=== PATIENT | female | born 1975 | race Two or more races ===

== ENCOUNTER 2021-10-02 15:56 | Inpatient (IN) | payer MEDICAID, SELFPAY ==
[~2021-10-02] VITALS: Ht 167.6 cm; Wt 98.4 kg
[2021-10-02 15:58] VITALS: BP 139/117
--- NOTE | 2021-10-02 16:12 | NUR ---
PT AMBULATED TO ER BED 4 WITH A STEADY GAIT.
--- NOTE | 2021-10-02 16:20 | NUR ---
45 Y/O FEMALE C/O ABDOMINAL PAIN 08/15 DESCRIBES BURNING RADIATES TO RLQ X1WEEK. PT STATES +N/V 3TIMES TODAY. PT STATES URINARY FREQUENCY, DIZZINESS, SUBJECTIVE FEVER, AND CHILLS X 1 WEEK. ABDOMEN IS SOFT, ROUND, NON-TENDER TO PALPATION, BOWEL SOUNDS ACTIVE X4, LAST BM 09/30/21. PMH: RIGHT CLAVICLE FRACTURE & SURGERY, ASTHMA NKA
[2021-10-02] MEDS ORDERED: ONDANSETRON 4 MG/2 ML VIAL ONE (16:22)
[2021-10-02] MEDS ORDERED: NACL 0.9% 1,000 ML IV ONE ×2 (16:25→17:30)
[2021-10-02] MEDS ORDERED: ONDANSETRON 4 MG/2 ML VIAL IVP ONE (16:25)
[2021-10-02] MEDS ORDERED: KETOROLAC 30 MG/ML VIAL IVP ONE (16:30)
--- NOTE | 2021-10-02 16:35 | NUR ---
PT CHANGED MIND FOR ZOFRAN AT THIS TIME. MED WAS WASTED IN [facility] WITH SYDNI RAI.
--- NOTE | 2021-10-02 16:39 | NUR ---
PT TAKEN TO CT AT THIS TIME.
[2021-10-02 16:41] LABS: BASOPHILS % (AUTO) 0.2 % (0.0-2.0); EOSINOPHILS % (AUTO) 0.1 % (0.0-4.0); HEMATOCRIT 35.2 % (36-48); HEMOGLOBIN 11.7 g/dL (12.0-16.0); LYMPHOCYTES # (AUTO) 0.5 K/uL (2.5-16.5); LYMPHOCYTES % (AUTO) 3.8 % (20.5-51.1); MEAN CORPUSCULAR HEMOGLOBIN 28 pg (27-31); MEAN CORPUSCULAR HGB CONC 33 g/dL (33-37); MEAN CORPUSCULAR VOLUME 84.4 fL (80-94); MONOCYTES # (AUTO) 0.3 K/uL (0.8-1.0); NEUTROPHILS # (AUTO) 11.9 K/uL (1.8-7.7); NEUTROPHILS % (AUTO) 93.9 % (42.2-75.2); PLATELET COUNT (AUTO) 302 K/uL (140-450); RED BLOOD CELL COUNT(AUTO) 4.17 MIL/uL (4.20-5.40); RED CELL DISTRIBUTION WIDTH 14.3 % (11.6-13.7); WHITE BLOOD COUNT (AUTO) 12.7 K/uL (4.8-10.8)
--- NOTE | 2021-10-02 16:51 | NUR ---
PT TAKEN TO ER BED 4 VIA CATHYRSULEMAN.
[2021-10-02 16:56] LABS: APPEARANCE,URINE CLEAR (CLEAR); BILIRUBIN,URINE NEGATIVE (NEGATIVE); BLOOD, URINE 1+ (NEGATIVE); COLOR,URINE YELLOW (YELLOW); LEUKOCYTE ESTERASE ,URINE 3+ (NEGATIVE); NITRITE, URINE POSITIVE (NEGATIVE); UGLUCOSE NEGATIVE (NEGATIVE)
[2021-10-02 17:13] LABS: WBC,URINE 16-25 (MOD) /HPF (0-5)
--- NOTE | 2021-10-02 17:22 | NUR ---
ARGENIS WAS SWABBED AND SENT TO LAB AT THIS TIME
[2021-10-02] MEDS ORDERED: MORPHINE SULFATE 2 MG/ML SYR IVP PRN (17:30)
[2021-10-02] MEDS ORDERED: HYDROcodone/APAP 5/325 MG 1 TAB TAB PO PRN (17:30)
--- NOTE | 2021-10-02 17:36 | NUR ---
CRISTIAN PHONE VERBAL ORDERS FOR ADMIT: TELEMETRY ADMIT FOR OBSTRUCTIVE INFECTED KIDNEY STONE BLOOD AND URINE CULTURES NS 0.9% RATE: 150ML/HR 1000ML IV FLOMAX 0.4MG PO START NOW THEN Q DAILY MORPHINE 2MG IVP Q 4HR FOR SEVERE PAIN NORCO 5/325MG PO Q 6HR FOR MODERATE PAIN REGULAR DIET CONSULT: UROLOGY REUBEN HINOJOSA MD
[2021-10-02 17:44] LABS: ALBUMIN 3.1 g/dL (3.4-5.0); ANION GAP 13.6 (8-16); CARBON DIOXIDE 26.1 mmol/L (21-32); CREATININE 0.7 mg/dL (0.6-1.3); POTASSIUM 3.7 mmol/L (3.5-5.1); TOTAL BILIRUBIN 0.5 mg/dL (0.0-1.0)
[2021-10-02] MEDS ORDERED: cefTRIAXone 1,000 MG VIAL ONE (17:50)
[2021-10-02] MEDS ORDERED: LEVE250T7 PO (18:15)
--- NOTE | 2021-10-02 18:17 | NUR ---
Patient will be admitted to care of CRISTIAN MICHEL. Admited to TELEMETRY. Will go to room 111A. Belongings list completed. REPORT WILL BE DONE AT SHIFT CHANGE WHEN NURSE BECOMES AVAILABLE.
[2021-10-02] MEDS: TAMSULOSIN 0.4 MG CAP PO SCH (19:07)
--- NOTE | 2021-10-02 19:10 | NUR ---
Pt report given to LAZARUS. Transfer of care at this time.
--- NOTE | 2021-10-02 20:18 | NUR ---
Patient will be admitted to care of DR. FOSTER. Admited to TELE . Will go to [facility] 111A. Belongings list completed. Report to
[2021-10-02 20:45] VITALS: BP 119/61
--- NOTE | 2021-10-02 20:58 | NUR ---
The patient's care was reviewed and supervised by AMISH REA RN.
[2021-10-03] VITALS: BP 132/67
[2021-10-03 04:00] VITALS: BP 108/60
--- NOTE | 2021-10-03 07:41 | NUR ---
Received pt from ED via jameel artis. A/O x 4. Ambulatory. Was on IV fluids NS at 150 ml/hr x 1. We shall be doing pain management. She did request for an abdominal binder. It was provided. She has a skin condition Hidradenitis Suppurativa.. Photos have been taken. Wound consult has been requested. Care has been endorsed to AM FREDI Saunders.
--- NOTE | 2021-10-03 07:45 | NUR ---
RECEIVED REPORT FROM MEAT WRAPPER RN FOR CONTINUITY OF CARE. PATIENT IS RESTING IN BED. NO S/S OF DISTRESS. ALL SAFETY PRECAUTIONS IN PLACE.
[2021-10-03 08:00] VITALS: BP 115/69
[2021-10-03] MEDS: TAMSULOSIN 0.4 MG CAP PO SCH (09:17)
--- NOTE | 2021-10-03 09:23 | NUR ---
ADMINISTERED SCHEDULED MEDICATION. PATIENT VERBALIZED UNDERSTANDING. PATIENT ALSO COMPLAINED OF 5/10 RLQ PAIN. ADMINISTERED PRN PAIN MEDICATION. ALL SAFETY PRECAUTIONS IN PLACE.
--- NOTE | 2021-10-03 11:30 | NUR ---
PATIENT IS RESTING IN BED. NO S/S OF DISTRESS. RESPIRATIONS EVEN AND UNLABORED. ALL SAFETY PRECAUTIONS IN PLACE.
[2021-10-03 12:00] VITALS: BP 127/74
[2021-10-03] MEDS ORDERED: ACETAMINOPHEN 325 MG TAB PO PRN (13:00)
[2021-10-03] MEDS ORDERED: ZOLPIDEM 5 MG TAB PO PRN (13:00)
[2021-10-03] MEDS ORDERED: NACL 0.9% 1,000 ML IV SCH (13:00)
[2021-10-03] MEDS ORDERED: ONDANSETRON 4 MG/2 ML VIAL IM/IVP PRN (13:00)
[2021-10-03] MEDS ORDERED: LORazepam 2 MG/ML VIAL IM/IVP PRN (13:00)
[2021-10-03] MEDS ORDERED: DOCUSATE SODIUM 100 MG GELCAP PO PRN (13:00)
[2021-10-03] MEDS ORDERED: MAG SULF 2000 MG/WATER PREMIX 50 ML IV PRN (13:05)
[2021-10-03] MEDS ORDERED: POTASSIUM CHLORIDE 10 MEQ TABER PO PRN (13:05)
[2021-10-03 13:27] LABS: BASOPHILS % (AUTO) 0.2 % (0.0-2.0); EOSINOPHILS % (AUTO) 0.5 % (0.0-4.0); HEMATOCRIT 31.7 % (36-48); HEMOGLOBIN 10.6 g/dL (12.0-16.0); LYMPHOCYTES # (AUTO) 0.7 K/uL (2.5-16.5); LYMPHOCYTES % (AUTO) 8.2 % (20.5-51.1); MEAN CORPUSCULAR HEMOGLOBIN 28 pg (27-31); MEAN CORPUSCULAR HGB CONC 33 g/dL (33-37); MEAN CORPUSCULAR VOLUME 84.6 fL (80-94); MONOCYTES # (AUTO) 0.3 K/uL (0.8-1.0); NEUTROPHILS # (AUTO) 7.6 K/uL (1.8-7.7); NEUTROPHILS % (AUTO) 87.1 % (42.2-75.2); PLATELET COUNT (AUTO) 245 K/uL (140-450); RED BLOOD CELL COUNT(AUTO) 3.75 MIL/uL (4.20-5.40); RED CELL DISTRIBUTION WIDTH 14.5 % (11.6-13.7); WHITE BLOOD COUNT (AUTO) 8.7 K/uL (4.8-10.8)
[2021-10-03 13:41] LABS: ANION GAP 9.9 (8-16); CARBON DIOXIDE 26.4 mmol/L (21-32); CREATININE 0.7 mg/dL (0.6-1.3); POTASSIUM 3.3 mmol/L (3.5-5.1)
[2021-10-03 13:42] LABS: PROTHROMBIN TIME 10.1 secs (10.8-13.4)
[2021-10-03 13:52] LABS: MAGNESIUM 1.7 mg/dL (1.8-2.4); PHOSPHORUS 2.6 mg/dL (2.5-4.9); THYROID STIMULATING HORMONE 1.65 uIU/mL (0.34-3.74)
--- NOTE | 2021-10-03 13:52 | NUR ---
PATIENT IS AWAKE AND LAYING IN BED. ADMINISTERED PRESCRIBED MEDICATIONS. PATIENT VERBALIZED UNDERSTANDING. ABDOMINAL BINDER ALSO GIVEN TO PT PER HER REQUEST. PT REPORTS PAIN HAS DECREASED SINCE PAIN MED ADMINISTERED. ALL SAFETY PRECAUTIONS IN PLACE.
[2021-10-03] MEDS ORDERED: levETIRAcetam 500 MG TAB PO SCH (14:39)
[2021-10-03 16:00] VITALS: BP 128/68
--- NOTE | 2021-10-03 17:00 | NUR ---
PATIENT REQUESTED TO BE DISCHARGED. I EXPLAINED DOCTOR'S PLAN, BUT PATIENT DID NOT WANT TO WAIT. NOTIFIED MD. I EXPLAINED RISKS AND CONSEQUENCES OF LEAVING AGAINST MEDICAL ADVICE. PATIENT VERBALIZED UNDERSTANDING AND STILL REQUESTED TO LEAVE. IV REMOVED; IV CATH INTACT. PATIENT STABLE.
[2021-10-04 08:07] LABS: T4 (THYROXINE) 7.9 ug/dL (4.5-12.0)
== END 2021-10-03 17:00 | disposition left against medical advice (07) | DRG 463 ==
LOC: MED 15:56 → MTU 17:28
DX: N13.6 Pyonephrosis (principal); E44.1 Mild protein-calorie malnutrition; E66.9 Obesity, unspecified; K80.20 Calculus of gallbladder without cholecystitis without obstruction; G40.909 Epilepsy, unspecified, not intractable, without status epilepticus; E86.0 Dehydration; Z20.822 Contact with and (suspected) exposure to COVID-19; D64.9 Anemia, unspecified; L73.2 Hidradenitis suppurativa; J45.909 Unspecified asthma, uncomplicated; Z56.0 Unemployment, unspecified; Z79.899 Other long term (current) drug therapy; Z87.820 Personal history of traumatic brain injury; Z68.35 Body mass index [BMI] 35.0-35.9, adult
CPT/HCPCS: 36415; 80048; 80053; 81001; 83036; 83690; 83735; 83880; 84100; 84134; 84436; 84443; 85025; 85610; 85730; 87040; 87081; 87086; 96361; 96365; 96375; 99285; J0696; J1885; J2270; J2405; J7060